=== PATIENT | female | born 1985 | race Caucasian/White ===

== ENCOUNTER 2017-03-13 03:17 | Inpatient (IN) ==
[~2017-03-13 03:17] MED LIST: *HR* Nalbuphine 20 MG/ML AMPUL IVP PRN; Famotidine 20 MG/2 ML VIAL IVP PRN; Metoclopramide 10 MG/2 ML VIAL IVP PRN; Naloxone 0.4 MG/ML INJ IVP PRN
[2017-03-13] MEDS ORDERED: *HR* Nalbuphine 20 MG/ML AMPUL ONE (03:21)
[2017-03-13] MEDS ORDERED: Ringers Solution, Lactated 1,000 ML ONE ×2 (03:23→04:57)
[2017-03-13 03:30] LABS: Hematocrit 35.3 % (35.3-44.9); Hemoglobin 11.6 g/dL (11.5-15.4); Immature Platelets 8.1 % (1.1-6.1); Mean Corpuscular HGB Conc 32.9 g/dL (31.6-35.5); Mean Corpuscular Hemoglobin 30.8 pg (28.0-33.3); Mean Corpuscular Volume 93.6 fL (83.0-100.0); Mean Platelet Volume 11.3 fL (9.4-12.4); Red Blood Count 3.77 M/mcL (3.82-4.97); Red Cell Distribution Width 13.2 % (11.5-14.5)
[2017-03-13 03:58] LABS: Amphetamine Screen,Urine Negative ng/mL (Cutoff=1000); Barbiturate Screen,Urine Negative ng/mL (Cutoff=200); Benzodiazepines Screen,Urine Negative ng/mL (Cutoff=200); Cannabinoid Screen,Urine Negative ng/mL (Cutoff = 50); Cocaine Screen,Urine Negative ng/mL (Cutoff= 300); Opiate Screen,Urine Negative ng/mL (Cutoff=300); Phencyclidine Screen,Urine Negative ng/mL (Cutoff=25)
[2017-03-13] MEDS ORDERED: *HR* FentaNYL (PF) 100 MCG/2 ML VIAL ONE (03:58)
--- NOTE | 2017-03-13 03:59 | Anesthesia Evaluation PreOp ---
Date of Encounter: 03/13/17 Time of Encounter: 03:56 - Past History Planned Operation: Labor Epidural Cardiac History: Denies any Significant Hx Pulmonary History: Denies Any Significant HX CANVAS WORKER History: Denies Any Significant HX Other Medical History: Thyroid, Other (obesity BMI=44) Anesthesia History: No Prior Anesthetic Complications, Past Anesthesia Alcohol Use: none Drug use: none Medications and Allergies Levothyroxine Sodium [Synthroid] 200 mcg PO DAILY 03/13/17 [History] 3 Allergy/AdvReac Type Severity Reaction Status Date / Time No Known Allergies Allergy Verified 03/13/17 03:42 - Meds/Allergy Pre-op Review Medications Reviewed: Yes Allergies Reviewed: Yes Beta Blockers on Current Med List: No Anesthesia Results - Labs 03/13/17 03:20 Anesthesia Exam 3 Temp 97.9 BP 105/59 Pulse 68 Resp 22 FHT's 130's Height: 5'6'' Weight: 273 lbs lbs Pain Scale: 10 (contractions) Pain Scale Used: Numeric (1 - 10) - HEENT Pupil (Motor): EOMI Mallampati: III Teeth: Normal Oral Opening: Greater than 3 - CANVAS WORKER LOC: Oriented CANVAS WORKER Motor: Normal RUE, Normal LUE, Normal RLE, Normal LLE, Normal Face CANVAS WORKER Sensory: Normal: RUE, LUE, RLE, LLE, Face - Cardiac Rhythm: Regular Murmur: None - Pulmonary Breath Sounds: bilateral Clear Respiratory Effort: Symmetrical Anesthesia Assess/Plan ASA Score: 3 Modified Isadora Scale for Level of Consciousness: Cooperative, oriented, and tranquil Anesthetic Plan: Regional Monitoring Plan: Standard Monitors
--- NOTE | 2017-03-13 04:06 | OB/GYN History & Physical ---
Date of Encounter: 03/13/17 Time of Encounter: 04:06 Assessment and Plan (1) Late care affecting in third trimester Current visit: Yes Status: Acute (2) Hypothyroidism Current visit: Yes Status: Acute Taking Synthroid 200mcg daily Qualifiers: Hypothyroidism type: unspecified Qualified Code(s): E03.9 - Hypothyroidism , unspecified (3) 40 weeks gestation of Current visit: Yes Status: Acute Plan: - admit to L&D - CBC neg - urine tox neg - give epidural when desired - FHR baseline at 130 with accelerations and good variables - expectant management, expect SROM and fast progression to 10cm - Anticipate History of Present Illness Chief complaint: labor HPI: Ms. Palumbo is a 32 year old female presented to L&D in active labor. Patient was scheduled for an induction at 8:00am this morning and came into L&D 5cm dilated with regular contractions. Patient's is complicated by late care beginning 01/20/[address] Bean. Patient denies leakage of fluid. PNL: A+, RPR negative, RI, HbsAg neg, GBS neg Past Med Surg Social Fam HX - Past Medical History Medical history: thyroid disease Psychiatric history: no psych history - Past Surgical History Surgical History: cholecystectomy - Social History Smoking Status: Current every day smoker Smokeless Tobacco Status: No Alcohol use: none Drug use: none - Family History Mother Hx Family Endocrine Disorder: Yes (thyroid disease) Obstetrical History - Pregnancies : 5 Para: 3 Term: 3 : 0 Ab's: 1 Livin - History/Complications History/Complications: Total pregnancies 5. Total living children 3. Miscarriage(s) 1. # 1: 2008,Male,6lbs,vaginal,[place] term . # 2: 2010,Female,6lbs 13oz,vaginal,full term . # 3 2014,female,8lbs,vaginal,full term Medications and Allergies Levothyroxine Sodium [Synthroid] 200 mcg PO DAILY 03/13/17 [History] 3 Allergy/AdvReac Type Severity Reaction Status Date / Time No Known Allergies Allergy Verified 03/13/17 03:42 Review of System OB All systems PM: reviewed and no additional remarkable complaints except as stated Exam - Vital Signs Vital signs: wnl - Constitutional Constitutional: well developed, well nourished - HEENT HEENT: Normocephaly, Mucus Membranes Moist - Neck Neck exam: full ROM - Lungs Respiratory exam: CTAB - Cardiovascular Cardiovascular exam: RRR - Abdomen Abdomen: Present: non tender - Extremities Extremities exam: full ROM, normal capillary refill - Cervix Dilation: 5 (per nursing ) Effacement: 100 (per nursing ) Station: -1 - Uterus Uterus exam: Present: normal size Results Result Diagrams: 03/13/17 03:20 Abnormal lab results WBC 20.7 K/mcL (4.3-11.1) H 03/13/17 03:20 RBC 3.77 M/mcL (3.82-4.97) L 03/13/17 03:20 Immature Plt Fraction 8.1 % (1.1-6.1) H 03/13/17 03:20 All other labs normal. - VTE Reasons for not Prescribing Prophylaxis: Treatment not Indicated - Low risk for VTE
[2017-03-13] MEDS ORDERED: Epidural Premix (fent/bupiv) 110 ML EP ONE (04:23)
[2017-03-13] MEDS ORDERED: Epidural Premix (fent/bupiv) 110 ML EP SCH (04:30)
--- NOTE | 2017-03-13 04:41 | Anesthesia Procedures ---
Date of Encounter: 03/13/17 Time of Encounter: 04:00 Procedures: Anesthesia - Epidural/Spinal Patient ID/Chart reviewed: Yes Patient examined: Yes OB Eval: : 5 OB Eval: Hx Para: 3 OB Eval: Dilated at (cm): 8 OB Eval: Contractions: Non-stressed pattern Consent Obtained: Yes Supplemental Oxygen: None/Room Air Site Prep: Aseptic Technique Patient position: upright Local Anesthetic: Lidocaine 1% Amount of Local Anesthetic used: 3 Touhy Needle Gauge: 18 Touhy Needle Depth (cm): 8 Catheter Depth at Skin (cm): 14 (skin) Test Dose (1.5% Lido + Epi): Volume given (mls): 3 Test Dose Result: Negative Loading Dose: Other: 10 ml of 0.125% bupivicaine with 2 mcg/ml fentanyl Loading Dose Administered: Thru Catheter Infusion Med: 0.125% Bupivacaine w/ 2 mcg/ml Fentanyl Infusion Rate (mls/hr): [address]: Tegaderm Interspace Used: L5-S1 Loss of Resistance (EARNEST): Yes Blood: No CSF: No Paresthesia: No Vitals + FHT's: 3 Vital Signs Time 0406 0413 0413 0416 0419 BP 123/84 127/82 125/75 139/77 139/77 Pulse 76 80 73 75 75 FHTs 130's 130's 140's 130's 130's
[2017-03-13] MEDS ORDERED: Oxytocin 20 units/ LR 1000 mL 20 UNIT/1,000 ML BAG IVC ONE (07:47)
--- NOTE | 2017-03-13 08:58 | OB/GYN Procedure Note ---
Delivery - Delivery Date: 03/13/17 Provider: Saima Sanchez (Trace Parker DO, PGY-1) Intrapartum events: none Delivery induction: none Delivery monitor: external FHT, external uterine Anesthesia: epidural Estimated Blood Loss: 100 - (s) Infant A Infant Delivery Date: 03/13/17 Infant Delivery Time: 08:39 Presentation: vertex Position: MONSTER Gender: Female Viability: Viable Weight Gram: 3.495 kg at 1 minute: 9 at 5 mins: 9 Shoulder Dystocia: not encountered Placenta: spontaneous Cord: 3 umbilical vessels - Repair Episiotomy: none Laceration Description: Periurethral (mild, hemostatic), Superficial (hemostatic ) - Complications Delivery complications: none Delivery comments: of vigorous viable female in the MONSTER position at 0839. Shoulders delivered easily. No nuchal cord. No meconium. No shoulder dystocia. placed on mom's abdomen. Apgars 9/9 at 1 and 5 minutes. Cord double clamped and cut after pulsations ceased. Placenta delivered spontaneously at 0848 appears grossly intact. 3 vessel cord. Upon peritoneal inspection, hemostatic periurethral and hemostatic posterior superficial lacerations present. Pericare instructions given to patient. Fundus firm. EBL 100ml. delivery by Trace Parker DO PGY-1 and Saima ROMERO. and mother stable in recovery. Dr Dickson notified of delivery. - Disposition Mom disposition: stable in LDR [place] disposition: stable in LDR
[2017-03-13] MEDS ORDERED: Acetaminophen 325 MG TABLET PO PRN ×3 (09:20→12:01)
[2017-03-13] MEDS ORDERED: Ibuprofen 600 MG TABLET PO PRN (09:20)
[2017-03-13] MEDS ORDERED: Oxytocin 20 units/ LR 1000 mL 20 UNIT/1,000 ML BAG IVC SCH (09:30)
[2017-03-13] MEDS ORDERED: Naloxone 0.4 MG/ML INJ IVP PRN (10:25)
[2017-03-13] MEDS ORDERED: Prenatal Vit/FA 1 EACH TABLET PO SCH (12:00)
[2017-03-13] MEDS: Ibuprofen 600 MG TABLET PO PRN ×2 (12:31→20:04)
[2017-03-14] MEDS: Ibuprofen 600 MG TABLET PO PRN ×2 (03:30→09:44)
[2017-03-14 06:58] LABS: Basophils # 0.1 K/mcL (0.0-0.2); Basophils % 0.4 %; Eosinophils # 0.4 K/mcL (0.0-0.6); Eosinophils % 2.6 %; Hematocrit 30.6 % (35.3-44.9); Hemoglobin 9.6 g/dL (11.5-15.4); Immature Granulocytes % 1.1 % (0-4); Lymphocytes # 3.3 K/mcL (0.6-4.6); Lymphocytes % 23.6 %; Mean Corpuscular HGB Conc 31.4 g/dL (31.6-35.5); Mean Corpuscular Hemoglobin 30.2 pg (28.0-33.3); Mean Corpuscular Volume 96.2 fL (83.0-100.0); Mean Platelet Volume 11.8 fL (9.4-12.4); Monocytes % 7.4 %; Neutrophils # 9.1 K/mcL (1.6-8.9); Platelet Count 258 K/mcL (140-400); Red Blood Count 3.18 M/mcL (3.82-4.97); Red Cell Distribution Width 13.2 % (11.5-14.5); Segmented Neutrophils % 64.9 %
[2017-03-14 08:42] VITALS: BP 119/54
[2017-03-14] MEDS ORDERED: Prenatal Vit/FA 1 EACH TABLET PO SCH (09:00)
--- NOTE | 2017-03-14 09:47 | Discharge Summary ---
Date of Encounter: 03/14/17 Time of Encounter: 10:05 - Discharge Diagnosis (1) Late care affecting in third trimester Priority: Secondary Status: Acute (2) Hypothyroidism Priority: Secondary Status: Acute Qualifiers: Hypothyroidism type: unspecified Qualified Code(s): E03.9 - Hypothyroidism , unspecified (3) 40 weeks gestation of Priority: Primary Status: Acute (4) Vaginal delivery Priority: Secondary Status: Acute (5) anemia Priority: Secondary Status: Acute Comments: hemoglobin: 11.6 to 9.6. - Discharge Medications Prescriptions: Acetaminophen [Tylenol] 650 mg PO Q6HR PRN #40 tablet PRN Reason: Mild Pain Ibuprofen [Motrin] 600 mg PO Q6HR PRN #40 tablet PRN Reason: Cramping Docusate [Colace] 100 mg PO BID #10 capsule Ferrous Sulfate 325 mg PO DAILY #30 tablet Home Medications: Levothyroxine Sodium [Synthroid] 200 mcg PO DAILY 03/13/17 [History] Acetaminophen [Tylenol] 650 mg PO Q6HR PRN #40 tablet 03/14/17 [Rx] Docusate [Colace] 100 mg PO BID #10 capsule 03/14/17 [Rx] Ferrous Sulfate 325 mg PO DAILY #30 tablet 03/14/17 [Rx] Ibuprofen [Motrin] 600 mg PO Q6HR PRN #40 tablet 03/14/17 [Rx] Vit/FA 1 each PO DAILY tablet 03/14/17 [Rx] Allergies/Adverse Reactions: 3 Allergy/AdvReac Type Severity Reaction Status Date / Time No Known Allergies Allergy Verified 03/13/17 03:42 Data Procedures and tests throughout hospitalization: Laboratory Tests 03/13/17 03/13/17 03/14/17 03:20 03:30 06:12 WBC 20.7 H 14.0 H RBC 3.77 L 3.18 L Hgb 11.6 9.6 L D Hct 35.3 30.6 L MCV 93.6 96.2 MCH 30.8 30.2 MCHC 32.9 31.4 L RDW 13.2 13.2 Plt Count 270 258 MPV 11.3 11.8 Immature Gran % 1.1 Seg Neutrophils % 64.9 Lymphocytes % 23.6 Monocytes % 7.4 Eosinophils % 2.6 Basophils % 0.4 Neutrophils # 9.1 H Lymphocytes # 3.3 Monocytes # 1.0 Eosinophils # 0.4 Basophils # 0.1 Immature Plt Fraction 8.1 H Urine Opiates Screen Negative Ur Barbiturates Screen Negative Ur Phencyclidine Scrn Negative Ur Amphetamines Screen Negative U Benzodiazepines Scrn Negative Urine Cocaine Screen Negative U Marijuana (THC) Screen Negative Labs on day of discharge: Labs from last 24 hours 03/14/17 06:12 WBC 14.0 H RBC 3.18 L Hgb 9.6 L D Hct 30.6 L MCV 96.2 MCH 30.2 MCHC 31.4 L RDW 13.2 Plt Count 258 MPV 11.8 Immature Gran % 1.1 Seg Neutrophils % 64.9 Lymphocytes % 23.6 Monocytes % 7.4 Eosinophils % 2.6 Basophils % 0.4 Neutrophils # 9.1 H Lymphocytes # 3.3 Monocytes # 1.0 Eosinophils # 0.4 Basophils # 0.1 Date of admission: 03/13/17 03:17 Primary care physician: Dr. Bean Consults: 03/13/17 09:21 Consult to Abrasive Worker [CONS] Routine Comment: Vaginal delivery, consult needed 03/13/17 11:23 Consult to Licensed Physical Therapist Assistant (W&C) [CONS] Routine Reason For Exam: Reason for SW Consult: needs a car seat. Late care Discharging clinician: Vivek Nuñez Anticipated date of discharge: 03/14/17 - Patient Status Disposition: Home, Self-Care Condition: Good Functional capacity at discharge: independent ambulation Overall status at discharge: patient is progressing back to baseline - Discharge Instructions Follow Up With: Nigel Bean DO [Partnered Physician] - - Diet and Activity Activity: increase activity as tolerated Diet: advance to your usual diet Hospital Course Reason for admission: active labor Delivery: Episiotomy: none Laceration: other (superficial hemostatic ) Other procedures: none complications: none Discharge diagnosis: IUP at term delivered [place] baby: female Hospital course: Delivery - Delivery Date: 03/13/17 Provider: Saima Sanchez (Trace Parker DO, PGY-1) Intrapartum events: none Delivery induction: none Delivery monitor: external FHT, external uterine Anesthesia: epidural Estimated Blood Loss: 100 - (s) A Delivery Date: 03/13/17 Delivery Time: 08:39 Presentation: vertex Position: MONSTER Gender: Female Viability: Viable Weight Gram: 3.495 kg at 1 minute: 9 at 5 mins: 9 Shoulder Dystocia: not encountered Placenta: spontaneous Cord: 3 umbilical vessels - Repair Episiotomy: none Laceration Description: Periurethral (mild, hemostatic), Superficial (hemostatic ) - Complications Delivery complications: none Delivery comments: of vigorous viable female in the MONSTER position at 0839. Shoulders delivered easily. No nuchal cord. No meconium. No shoulder dystocia. placed on mom's abdomen. Apgars 9/9 at 1 and 5 minutes. Cord double clamped and cut after pulsations ceased. Placenta delivered spontaneously at 0848 appears grossly intact. 3 vessel cord. Upon peritoneal inspection, hemostatic periurethral and hemostatic posterior superficial lacerations present. Pericare instructions given to patient. Fundus firm. EBL 100ml. Infant delivery by Trace Parker DO PGY-1 and Saima Sanchez CNM. and mother stable in recovery. Dr Dickson notified of delivery. - Disposition Mom disposition: stable in LDR disposition: stable in LDR Time Attestation: Total time spent providing and/or coordinating discharge services: Exam - Constitutional Vitals: Temp Pulse Resp BP Pulse Ox 98.2 F 54 16 119/54 99 03/14/17 08:25 03/14/17 08:25 03/14/17 08:25 03/14/17 08:25 03/14/17 08:25 General appearance IM: pleasant, no acute distress - Respiratory Respiratory exam: Present: CTAB - Cardiovascular Cardiovascular exam IM: Present: RRR - GI/Abdominal GI/Abdominal exam IM: normal bowel sounds - Uterine Tone: Firm Uterus Position: At Umbilicus - Extremities Exam Extremities exam IM: Present: full ROM - Neurological Exam Neurological exam: alert, no focal deficits - Attending Attestation I examined this patient and my medical decision-making was reviewed with the Resident Physician. I agree with the documented findings, disposition and treatment plan as described except to the extent set forth below. Fahad Nuñez MD
[2017-03-14] MEDS ORDERED: FLUARIX QUAD 2017-18 36MOS UP/PF 0.5 ML SYRINGE IM ONE (10:55)
== END 2017-03-14 12:28 | disposition home or self-care (01) | DRG 560 ==
LOC: 1NENULAB → 1NENUOBS 11:14
PROVIDERS: ADMIT Registered Nurse; ATTEND Registered Nurse

== ENCOUNTER 2018-12-02 05:58 | Inpatient (IN) ==
[2018-12-02] MEDS ORDERED: Ondansetron 4 MG/2 ML VIAL IVP PRN ×2 (06:12→07:52)
[2018-12-02] MEDS ORDERED: Famotidine 20 MG/2 ML VIAL IVP PRN (06:12)
[2018-12-02] MEDS ORDERED: *HR* Nalbuphine 10 MG/ML AMPUL IVP PRN (06:12)
[2018-12-02] MEDS ORDERED: Naloxone 0.4 MG/ML INJ IVP PRN ×2 (06:12→07:52)
[2018-12-02] MEDS ORDERED: Lidocaine 1% 20 ML MDV INFILT PRN (06:12)
[2018-12-02] MEDS ORDERED: Metoclopramide 10 MG/2 ML VIAL IVP PRN (06:12)
[2018-12-02] MEDS ORDERED: Ringers Solution, Lactated 1,000 ML IVC SCH (06:15)
[2018-12-02] MEDS ORDERED: FLU Vac QV 19-20 (6Month+)/PF 0.5 ML SYRINGE IM ONE (06:20)
[2018-12-02] MEDS ORDERED: Penicillin G Potassium 5,000,000 UNIT in 0.9 % Sodium Chloride Mini Bag 100 ML IVPB ONE (06:41)
[2018-12-02 06:56] LABS: Basophils % 0.4 %; Eosinophils # 0.2 K/mcL (0.0-0.6); Eosinophils % 1.9 %; Hematocrit 32.5 % (35.3-44.9); Hemoglobin 10.8 g/dL (11.5-15.4); Lymphocytes # 2.3 K/mcL (0.6-4.6); Lymphocytes % 29.1 %; Mean Corpuscular HGB Conc 33.2 g/dL (31.6-35.5); Mean Corpuscular Hemoglobin 31.5 pg (28.0-33.3); Mean Corpuscular Volume 94.8 fL (83.0-100.0); Mean Platelet Volume 11.3 fL (9.4-12.4); Monocytes # 0.8 K/mcL (0.0-1.3); Monocytes % 10.3 %; Neutrophils # 4.5 K/mcL (1.6-8.9); Platelet Count 203 K/mcL (140-400); Red Blood Count 3.43 M/mcL (3.82-4.97); Red Cell Distribution Width 14.9 % (11.5-14.5); Segmented Neutrophils % 57.3 %; White Blood Count 7.9 K/mcL (4.3-11.1)
[2018-12-02] MEDS ORDERED: miSOPROStol 25 MCG TABLET PO PRN (07:25)
[2018-12-02 07:37] LABS: Amphetamine Screen,Urine Negative ng/mL (Cutoff=1000); Barbiturate Screen,Urine Negative ng/mL (Cutoff=200); Benzodiazepines Screen,Urine Negative ng/mL (Cutoff=300); Cannabinoid Screen,Urine Negative ng/mL (Cutoff = 50); Cocaine Screen,Urine Negative ng/mL (Cutoff= 300); Opiate Screen,Urine Negative ng/mL (Cutoff=300); Phencyclidine Screen,Urine Negative ng/mL (Cutoff=25)
[2018-12-02] MEDS ORDERED: Ropivacaine/PF 0.2% 20 ML VIAL EP ONE (07:52)
[2018-12-02] MEDS ORDERED: EPHEDrine 50 MG/ML VIAL IVP PRN (07:52)
[2018-12-02] MEDS ORDERED: *HR* FentaNYL (PF) 100 MCG/2 ML VIAL EP ONE (07:52)
--- NOTE | 2018-12-02 07:56 | Anesthesia Evaluation PreOp ---
Date of Encounter: 12/02/18 Time of Encounter: 07:43 - Past History Planned Operation: DANIEL Cardiac History: Denies any Significant Hx Pulmonary History: Smoker, Pack/yr (5pk/yr) MANAGER PROGRAM History: Other (Bilateral carpal tunnel syndrome) Other Medical History: Thyroid (hypothyroidism) Anesthesia History: No Prior Anesthetic Complications, Past Anesthesia (lap cholecystectomy) : Yes Alcohol Use: none Drug use: none Medications and Allergies Levothyroxine Sodium [Synthroid] 200 mcg PO DAILY 03/13/17 [History] Vit/FA 1 each PO DAILY tablet 03/14/17 [Rx] Allergy/AdvReac Type Severity Reaction Status Date / Time No Known Allergies Allergy Verified 12/02/18 06:18 - Meds/Allergy Pre-op Review Medications Reviewed: Yes Allergies Reviewed: Yes Beta Blockers on Current Med List: No Anesthesia Results - Labs 12/02/18 06:39 Anesthesia Exam BP 100/67 P 84 R 16 T 97.8 Height: 5'6" Weight: 130.6kg NPO (# of Hours): 8 Pain Scale: 2 Pain Scale Used: Numeric (1 - 10) - HEENT Pupil (Motor): Pupils equal Mallampati: II Teeth: Normal Oral Opening: Greater than 3 - MANAGER PROGRAM LOC: Oriented MANAGER PROGRAM Motor: Normal RUE, Normal LUE, Normal RLE, Normal LLE, Normal Face MANAGER PROGRAM Sensory: Normal: RLE, LLE, Face, Deficit: RUE (carpal tunnel), LUE (carpal tunnel) - Cardiac Rhythm: Regular Murmur: None JVD: No Carotid Bruit: No - Pulmonary Breath Sounds: bilateral Clear Respiratory Effort: Symmetrical Anesthesia Assess/Plan ASA Score: 2 Level of consciousness: Cooperative, Oriented, Tranquil Anesthetic Plan: Epidural Autologous Blood: No Monitoring Plan: Standard Monitors Recovery Plan: Other
[2018-12-02] MEDS ORDERED: Epidural Premix (fent/bupiv) 110 ML EP SCH (08:00)
[2018-12-02] MEDS ORDERED: Acetaminophen 325 MG TABLET PO ONE (08:36)
--- NOTE | 2018-12-02 08:51 | OB/GYN History & Physical ---
Date of Encounter: 12/02/18 Time of Encounter: 08:48 Assessment and Plan (1) 39 weeks gestation of Current visit: Yes Status: Acute schedule IOL PO cytotec (2) Group B streptococcal carriage complicating Current visit: Yes Status: Acute GBS prophylaxis (3) Hypothyroidism Current visit: No Status: Acute Patient currently on synthroid Qualifiers: Hypothyroidism type: unspecified Qualified Code(s): E03.9 - Hypothyroidism, unspecified History of Present Illness Chief complaint: Scheduled IOL HPI: Ms. Palumbo is a 33 year old female @ 39 weeks presented to labor and delivery for scheduled IOL by Dr. Crocker for [facility] to deliver. Patient reports good movement, denies LOF, VB or contractions. Patient's is complicated by late care, short interval between pregnancies and hypothyroidism. Blood type: A+ Rubella: Immune Hep B: Nonreactive GBS: Positive Past Med Surg Social Fam HX - Past Medical History Source: patient Medical history: thyroid disease Psychiatric history: no psych history - Past Surgical History Surgical History: cholecystectomy - Social History Smoking Status: Current every day smoker Packs per day: 1/2 Smokeless Tobacco Status: No Alcohol use: none Drug use: none Current living situation: Home - Independent Activity Level: Independent ambulation Recent Out of Country Travel Within the Last 8 Weeks: No Exposure or Possible Exposure to Illness During Travel: No - Family History Mother Hx Family Endocrine Disorder: Yes (thyroid disease) Obstetrical History - Pregnancies : 6 Para: 4 Term: 4 : 0 Ab's: 1 Livin Medications and Allergies Levothyroxine Sodium [Synthroid] 200 mcg PO DAILY 03/13/17 [History] Vit/FA 1 each PO DAILY tablet 03/14/17 [Rx] Allergy/AdvReac Type Severity Reaction Status Date / Time No Known Allergies Allergy Verified 12/02/18 06:18 Review of System OB - Constitutional Constitutional ROS IM: no chills, no fever(s), no headache(s) - Cardiovascular Cardiovascular: no chest pain, no lightheadedness, no palpitations, no syncope - Respiratory Respiratory: no cough, no dyspnea - Gastrointestinal Gastrointestinal: no abdominal pain, no constipation, no diarrhea, no heartburn, no nausea, no vomiting - Genitourinary Genitourinary: no dysuria, no urinary frequency, no urinary hesitancy, no urinary incontinence, no urinary urgency, no vaginal discharge, no vaginal odor, no vaginal pruritis Exam - Constitutional Constitutional: well developed, well nourished, no acute distress, obese - HEENT HEENT: Normocephaly, Mucus Membranes Moist - Neck Neck exam: full ROM, supple - Lungs Respiratory exam: CTAB - Cardiovascular Cardiovascular exam: RRR, +S1, +S2 - Abdomen Abdomen: Present: bowel sounds normal, gravid, non tender - Extremities Extremities exam: full ROM, normal inspection Deep Tendon Reflex Grade: 2+ Normal - Cervix Dilation: 1 (per RN) Effacement: 40 Station: -2 - Uterus Uterus exam: Present: normal size, normal contour - Comments Comments: FHR 135 bpm moderate variability Results Result Diagrams: 12/02/18 06:39 Abnormal lab results RBC 3.43 M/mcL (3.82-4.97) L 12/02/18 06:39 Hgb 10.8 g/dL (11.5-15.4) L 12/02/18 06:39 Hct 32.5 % (35.3-44.9) L 12/02/18 06:39 RDW 14.9 % (11.5-14.5) H 12/02/18 06:39 All other labs normal. - VTE Reasons for not Prescribing Prophylaxis: Treatment not Indicated - Low risk for VTE
[2018-12-02] MEDS ORDERED: Penicillin G Potassium 2,500,000 UNIT in 0.9 % Sodium Chloride 100 ML IVPB SCH (11:00)
[2018-12-02] MEDS ORDERED: Oxytocin 20 units/ LR 1000 mL 20 UNIT/1,000 ML BAG IVC ONE (13:13)
--- NOTE | 2018-12-02 13:42 | OB Labor Progress Note ---
Date of Encounter: 12/02/18 Time of Encounter: 13:39 Labor Progress Note - Subjective Subjective: Patient resting in bed - Cervix Cervix: 50/-3 - Heart Tones Heart Tones: 130 bpm moderate variability +15x15 accels no decels noted. Cat. 1 tracing - [place]: 2-3 min - Interventions Interventions: SVE, Mcgrath catheter placed for IOL with 50cc sterile water placed in balloon. Patient tolerated well. - Plan Physician notified: Yes Physician notified details: updated on POC Plan: Continue labor management patient may have Nubain or epidural when desires.
[2018-12-02] MEDS ORDERED: Ropivacaine/PF 0.2% 20 ML VIAL ONE (14:29)
[2018-12-02] MEDS ORDERED: *HR* FentaNYL (PF) 100 MCG/2 ML VIAL ONE (14:29)
--- NOTE | 2018-12-02 15:01 | Anesthesia Procedures ---
Date of Encounter: 12/02/18 Time of Encounter: 14:33 Procedures: Anesthesia - Epidural/Spinal Patient ID/Chart reviewed: Yes Patient examined: Yes OB Eval: Gestational age: 39 OB Eval: : 6 OB Eval: Hx Para: 4 OB Eval: Dilated at (cm): 3 OB Eval: Contractions: Non-stressed pattern Consent Obtained: Yes Supplemental Oxygen: None/Room Air Site Prep: Aseptic Technique, Sterile prep and drape, Povidone-Iodine 1% Patient position: upright Local Anesthetic: Lidocaine 1% Amount of Local Anesthetic used: 3 Touhy Needle Gauge: 18 Touhy Needle Depth (cm): 7 Catheter Depth at Skin (cm): 14 Test Dose (1.5% Lido + Epi): Volume given (mls): 3 Test Dose Result: Negative Loading Dose: Fentanyl (mcg): 100 Loading Dose: Other: Ropivicaine 0.2% 5ml Loading Dose Administered: Thru Catheter Infusion Med: 0.125% Bupivacaine w/ 2 mcg/ml Fentanyl Infusion Rate (mls/hr): [address]: Tegaderm, Tape Interspace Used: L4-L5 Loss of Resistance (EARNEST): Yes Blood: No CSF: No Paresthesia: No Procedure: DANIEL placed 1st pass in upright position. EARNEST achieved with normal saline. Catheter threaded with ease to 15cm at the skin. Pt stated comfort following epidural bolus administration. VSS throughout. Vitals + FHT's: 1433 BP 127/69 P 65 R 22 1446 BP 123/59 P 78 R 18
--- NOTE | 2018-12-02 17:00 | OB/GYN Procedure Note ---
Delivery - Delivery Date: 12/02/18 Provider: Ger Guadalupe Intrapartum events: none Delivery induction: oxytocin Delivery augmentation: rupture of membranes, pitocin Delivery monitor: external FHT, external uterine Anesthesia: epidural Quantitated Blood Loss: 400 - Infant (s) Infant A Delivery Date: 12/02/18 Infant Delivery Time: 16:45 Presentation: face or brow Route of delivery: Gender: Female Viability: Viable at 1 minute: 8 at 5 mins: 9 Shoulder Dystocia: not encountered Specimens collected: cord blood Placenta: spontaneous Cord: 3 umbilical vessels - Repair Episiotomy: none Laceration Description: None - Complications Delivery complications: none Delivery comments: Called in to help with delivery. was found to be in face presentation. On my arrival patient was complete patient was multiparous. Infant's chin was in an LMA position. Patient with epidural. Contractions occurring every 2-4 minutes. Patient was able to bring baby down. I was able to rotate infant's head to a mentum anterior presentation of the face. Baby was unable to come down easily. Once the 's head was in the perineum the rest of the infant was then delivered with 1 push. cried immediately upon delivery. The cord was cut to cut. The was passed to nursing in attendance. Cord blood was obtained. The placenta was then delivered spontaneously and intact. There are no cervical, vaginal, periurethral, or perineal lacerations noted. Patient delivered a female infant with Apgars of 8 at 1 minute and 9 at 5 minutes. delivered in face presentation with mentum anterior. Estimated blood loss is 400 mL. Weight is pending his mother skin the skin. - Disposition Mom disposition: stable in LDR disposition: stable in LDR
[2018-12-02] MEDS ORDERED: cefOXitin 2,000 MG in Water for inj. (sterile) 20 ML IVP ONE (18:14)
[2018-12-02] MEDS ORDERED: Rho Immune Globulin 1,500 UNIT SYRINGE IM PRN (18:14)
[2018-12-02] MEDS ORDERED: Measles/Mumps/Rubella Vacc 0.5 ML VIAL SQ PRN (18:14)
[2018-12-02] MEDS ORDERED: Oxytocin 20 units/ LR 1000 mL 20 UNIT/1,000 ML BAG IVC SCH (18:14)
[2018-12-02] MEDS: Ibuprofen 600 MG TABLET PO PRN (18:41)
[2018-12-02] MEDS: Acetaminophen 325 MG TABLET PO PRN (22:27)
[2018-12-03] MEDS: Ibuprofen 600 MG TABLET PO PRN ×3 (02:43→15:38)
[2018-12-03 06:20] LABS: Basophils % 0.2 %; Eosinophils # 0.2 K/mcL (0.0-0.6); Hematocrit 30.6 % (35.3-44.9); Hemoglobin 9.9 g/dL (11.5-15.4); Immature Granulocytes % 0.9 % (0-4); Lymphocytes # 1.7 K/mcL (0.6-4.6); Lymphocytes % 18.6 %; Mean Corpuscular HGB Conc 32.4 g/dL (31.6-35.5); Mean Corpuscular Hemoglobin 31.8 pg (28.0-33.3); Mean Corpuscular Volume 98.4 fL (83.0-100.0); Mean Platelet Volume 11.2 fL (9.4-12.4); Monocytes # 0.7 K/mcL (0.0-1.3); Monocytes % 7.7 %; Neutrophils # 6.3 K/mcL (1.6-8.9); Platelet Count 162 K/mcL (140-400); Red Blood Count 3.11 M/mcL (3.82-4.97); Segmented Neutrophils % 70.6 %; White Blood Count 8.9 K/mcL (4.3-11.1)
[2018-12-03] MEDS ORDERED: Prenatal Vit/FA 1 EACH TABLET PO SCH (09:00)
[2018-12-03] MEDS: Acetaminophen 325 MG TABLET PO PRN (10:20)
--- NOTE | 2018-12-03 10:51 | Discharge Summary ---
Date of Encounter: 12/03/18 Time of Encounter: 10:48 - Discharge Diagnosis (1) Vaginal delivery Priority: Primary Status: Acute Comments: S/P Vaginal Delivery Day 1. VSS Pain is well controlled Lochia is light and without clots Tolerating regular diet, passing flatus Voiding without difficulty Bottle feeding Discharge home today POC per consult with Dr Guadalupe - Discharge Medications Prescriptions: New Docusate [Colace] 100 mg PO BID #30 capsule Ferrous Sulfate 325 mg PO BIDWM #180 tablet Ibuprofen [Motrin] 600 mg PO Q6HR PRN #30 tablet PRN Reason: Cramping Acetaminophen [Tylenol] 650 mg PO Q6HR PRN tablet PRN Reason: Mild Pain Continued Levothyroxine Sodium [Synthroid] 200 mcg PO DAILY Vit/FA 1 each PO DAILY tablet Home Medications: Levothyroxine Sodium [Synthroid] 200 mcg PO DAILY 03/13/17 [History] Vit/FA 1 each PO DAILY tablet 03/14/17 [Rx] Acetaminophen [Tylenol] 650 mg PO Q6HR PRN tablet 12/03/18 [Rx] Docusate [Colace] 100 mg PO BID #30 capsule 12/03/18 [Rx] Ferrous Sulfate 325 mg PO BIDWM #180 tablet 12/03/18 [Rx] Ibuprofen [Motrin] 600 mg PO Q6HR PRN #30 tablet 12/03/18 [Rx] Allergies/Adverse Reactions: Allergy/AdvReac Type Severity Reaction Status Date / Time No Known Allergies Allergy Verified 12/02/18 06:18 Data Procedures and tests throughout hospitalization: Laboratory Tests 12/02/18 12/02/18 12/03/18 06:36 06:39 06:05 WBC 7.9 8.9 RBC 3.43 L 3.11 L Hgb 10.8 L 9.9 L Hct 32.5 L 30.6 L MCV 94.8 98.4 MCH 31.5 31.8 MCHC 33.2 32.4 RDW 14.9 H 15.0 H Plt Count 203 162 MPV 11.3 11.2 Immature Gran % 1.0 0.9 Seg Neutrophils % 57.3 70.6 Lymphocytes % 29.1 18.6 Monocytes % 10.3 7.7 Eosinophils % 1.9 2.0 Basophils % 0.4 0.2 Neutrophils # 4.5 6.3 Lymphocytes # 2.3 1.7 Monocytes # 0.8 0.7 Eosinophils # 0.2 0.2 Basophils # 0.0 0.0 Urine Opiates Screen Negative Ur Buprenorphine Scrn Negative Ur Barbiturates Screen Negative Ur Phencyclidine Scrn Negative Ur Amphetamines Screen Negative U Benzodiazepines Scrn Negative Urine Cocaine Screen Negative U Marijuana (THC) Screen Negative Ur Drug Screen Interp See Below Labs on day of discharge: Labs from last 24 hours 12/03/18 06:05 WBC 8.9 RBC 3.11 L Hgb 9.9 L Hct 30.6 L MCV 98.4 MCH 31.8 MCHC 32.4 RDW 15.0 H Plt Count 162 MPV 11.2 Immature Gran % 0.9 Seg Neutrophils % 70.6 Lymphocytes % 18.6 Monocytes % 7.7 Eosinophils % 2.0 Basophils % 0.2 Neutrophils # 6.3 Lymphocytes # 1.7 Monocytes # 0.7 Eosinophils # 0.2 Basophils # 0.0 Date of admission: 12/02/18 05:58 Primary care physician: Vel Garcia CNP Consults: 12/02/18 06:32 Consult to [place] (W&C) [CONS] Stat Reason For Exam: Reason for SW Consult: Cord Stat for late care. 12/02/18 18:14 Consult to [facility] [CONS] Routine Comment: Vaginal delivery, consult needed Discharging clinician: Saima Sanchez Anticipated date of discharge: 12/03/18 - Patient Status Disposition: Home, Self-Care Condition: Good Functional capacity at discharge: independent ambulation Overall status at discharge: patient is progressing back to baseline - Discharge Instructions Follow Up With: Vel Garcia CNP [Primary Care Provider] - Tracy Crocker [Partnered Physician] - - Diet and Activity Activity: increase activity as tolerated Diet: regular diet Hospital Course Reason for admission: IUP at term Delivery: Episiotomy: none Other procedures: none complications: none Discharge diagnosis: IUP at term delivered [place] baby: female Time Attestation: Total time spent providing and/or coordinating discharge services: Time Spent: Less than 30 minutes Exam - Constitutional Vitals: Temp Pulse Resp BP Pulse Ox 97.8 F 67 18 94/57 99 12/03/18 07:47 12/03/18 07:47 12/03/18 09:30 12/03/18 07:47 12/03/18 03:50 General appearance IM: cooperative, A&O X 3, pleasant - Respiratory Respiratory exam: Present: CTAB - Cardiovascular Cardiovascular exam IM: Present: RRR, +S1, +S2 - GI/Abdominal GI/Abdominal exam IM: normal bowel sounds, soft - Rectal Rectal exam: deferred - Uterine Tone: Firm Uterus Position: 2 Fingers Below Umbilicus, Midline - Extremities Exam Extremities exam IM: Present: normal capillary refill, normal inspection, radial pulses palpable and symmetrical
[2018-12-03 16:47] VITALS: BP 97/52
[2018-12-03] MEDS ORDERED: FLU Vac QV 19-20 (6Month+)/PF 0.5 ML SYRINGE IM ONE (17:11)
== END 2018-12-03 18:10 | disposition home or self-care (01) | DRG 560 ==
LOC: 1NENULAB 05:58 → 1NENUOBS 21:05
PROVIDERS: ADMIT Advanced Practice Midwife; ATTEND Advanced Practice Midwife